=== PATIENT | female | born 1990 | race Hispanic/Latino ===

== ENCOUNTER 2017-12-27 08:28 | Emergency (ER) | payer OTHER, SELFPAY ==
[2017-12-27 08:33] VITALS: BP 139/89; PULSE 68; TEMP 97
[2017-12-27 08:34] VITALS: BMI 27.4
[2017-12-27 08:44] VITALS: O2SAT 98
--- NOTE | 2017-12-27 09:08 | ED PDOC ---
HPI: Influenza Time Seen by Provider: 12/27/17 09:04 Chief Complaint: Flu-like Symptoms History Per: Patient Additional complaint(s):: 27 yo female, no PMH, presents to ED with complaints of cough, nasal congestion, sore throat and ear pain x 5 days. Past Medical History Reviewed: Nursing Documentation, Vital Signs Vital Signs: Last Vital Signs Temp 97 F L 12/27/17 08:32 Pulse 68 12/27/17 08:32 Resp BP 139/89 12/27/17 08:32 Pulse Ox 98 12/27/17 08:42 - Medical History PMH: Bronchitis, Migraine - Family History Family History: States: Unknown Family Hx - Living Arrangements Living Arrangements: With Family - Social History Current smoker - smoking cessation education provided: No Alcohol: None Drugs: Denies - Home Medications Home Medications: Ambulatory Orders Medication Instructions Recorded Acetaminophen/Butalbital/Caf 1 tab PO TID PRN #20 tab 07/20/15 [Fioricet] Guaifenesin/Pseudoephedrne HCl 1 tab PO DAILY PRN #30 ter 12/27/17 [Mucinex D 600 mg-60 mg] Ibuprofen [Motrin] 600 mg PO Q6 #20 tab 12/27/17 Promethazine HCl/Codeine 5 ml PO HS #80 ml 12/27/17 [Prometh-Codein 6.25-10 mg/5 ml] - Allergies Allergies/Adverse Reactions: Allergies Allergy/AdvReac Type Severity Reaction Status Date / Time No Known Allergies Allergy Verified 12/27/17 08:42 Review of Systems ROS Statement: Except As Marked, All Systems Reviewed And Found Negative Constitutional: Positive for: Fever, Chills ENT: Positive for: Nose Congestion Respiratory: Positive for: Cough Physical Exam - Reviewed Nursing Documentation Reviewed: Yes Vital Signs Reviewed: Yes - Physical Exam Appears: Positive for: Well, Non-toxic, No Acute Distress Head Exam: Positive for: ATRAUMATIC, NORMAL INSPECTION, NORMOCEPHALIC Skin: Positive for: Normal Color, Warm, DRY Eye Exam: Positive for: EOMI, Normal appearance, PERRL ENT: Positive for: Normal ENT Inspection Neck: Positive for: Normal, Painless ROM Cardiovascular/Chest: Positive for: Regular Rate, Rhythm Respiratory: Positive for: CNT, Normal Breath Sounds Gastrointestinal/Abdominal: Positive for: Normal Exam, Soft Back: Positive for: Normal Inspection Extremity: Positive for: Normal ROM Neurologic/Psych: Positive for: Alert, Oriented Medical Decision Making Medical Decision Making: IV access established and treatment initiated with IVF, Toradol. Pt reports feeling well on re-eval. CXR: NAD, as read by [facility] Labs resulted and reviewed with Pt Supportive care measures discussed - Laboratory Results Result Diagrams: 12/27/17 11:27 12/27/17 11:27 - ECG O2 Sat by Pulse Oximetry: 98 Disposition - Clinical Impression Clinical Impression: Influenza-like symptoms - Patient ED Disposition Is Patient to be Admitted: No - Disposition Disposition: Routine/Home Disposition Time: 12:00 Condition: STABLE Prescriptions: Guaifenesin/Pseudoephedrne HCl [Mucinex D 600 mg-60 mg] 1 tab PO DAILY PRN #30 ter PRN Reason: congestion Ibuprofen [Motrin] 600 mg PO Q6 #20 tab Promethazine HCl/Codeine [Prometh-Codein 6.25-10 mg/5 ml] 5 ml PO HS #80 ml Instructions: Viral Upper Respiratory Infection, Adult (DC) Forms: [facility]), [employer] ED School/Work Excuse
[2017-12-27] MEDS ORDERED: Sodium Chloride 0.9% 1,000 ML IV STA (09:52)
[2017-12-27 11:45] LABS: BASO % 0.5 % (0.0-2.0); EOS # 0.1 K/uL (0.0-0.7); EOS % 0.8 % (0.0-4.0); HEMOGLOBIN 13.6 g/dL (12.0-16.0); LYMPH # 1.8 K/uL (1.0-4.3); MEAN CELL VOLUME 84.6 fl (81.0-99.0); MEAN CORPUSCULAR HEMOGLOBIN 28.4 pg (27.0-31.0); MEAN CORPUSCULAR HGB CONC 33.6 g/dL (33.0-37.0); MEAN PLATELET VOLUME 8.7 fl (7.2-11.7); MONO # 0.4 K/uL (0.0-0.8); MONO % 6.6 % (0.0-10.0); NEUT % 63.1 % (50.0-75.0); RBC 4.79 Mil/uL (3.80-5.20); RED CELL DISTRIBUTION WIDTH 13.4 % (11.5-14.5); WHITE BLOOD COUNT 6.3 K/uL (4.8-10.8)
[2017-12-27 11:49] LABS: URINE BACTERIA RARE (<OCC); URINE BILIRUBIN NEGATIVE (NEGATIVE); URINE BLOOD NEGATIVE (NEGATIVE); URINE CLARITY CLEAR (Clear); URINE COLOR STRAW (YELLOW); URINE GLUCOSE (UA) NEG (Normal); URINE LEUKOCYTE ESTERASE NEG Leu/uL (Negative); URINE PROTEIN NEGATIVE (NEGATIVE); URINE UROBILINOGEN 0.2-1.0 mg/dL (0.2-1.0)
[2017-12-27 11:56] LABS: ALBUMIN 4.2 g/dL (3.5-5.0); ALT/SGPT 22 U/L (9-52); AST/SGOT 23 U/L (14-36); BLOOD UREA NITROGEN 9 mg/dl (7-17); CALCIUM 9.1 mg/dL (8.4-10.2); GFR NON-AFRICAN AMERICAN > 60
--- NOTE | 2017-12-27 13:15 | RAD ---
Date of service: 12/27/2017 HISTORY: cough COMPARISON: 07/20/2015 TECHNIQUE: Chest PA and lateral FINDINGS: LUNGS: No active pulmonary disease. PLEURA: No significant pleural effusion identified. No pneumothorax apparent. CARDIOVASCULAR: Normal. OSSEOUS STRUCTURES: No significant abnormalities. VISUALIZED UPPER ABDOMEN: Normal. OTHER FINDINGS: None. IMPRESSION: No active disease.
== END 2017-12-27 14:00 | disposition home or self-care (01) ==
LOC: H.ER 08:28
DX: J11.1 Influenza due to unidentified influenza virus with other respiratory manifestations (principal)
CPT/HCPCS: 71046; 80053; 81003; 81025; 85025; 87040; 87070; 87430; 87804; 96374; 99284; J1885; J7030